=== PATIENT | male | born 1970 | race Caucasian/White ===

== ENCOUNTER 2016-11-12 16:01 | Inpatient (IN) | payer MEDICAID ==
--- NOTE | 2016-11-12 16:33 | C.PDOC ---
History Of Present Illness SUICIDAL, SP OD ATTEMPT YEST. PS "I WANT TO GET OFF THIS HABIT". HEROIN ABUSE ONLY, DENIES OTHER DRUG USE. NONE TAKEN TODAY EXAM PSYCH +SI NO ACUTE INTOX OR WITHDRAWAL, CALM COOPERATIVE REMAINDER NEG Time Seen by Provider: 11/12/16 16:30 Chief Complaint (Nursing): Psychiatric Evaluation History Per: Patient History/Exam Limitations: no limitations Onset/Duration Of Symptoms: Persistent Suicide/Self Injury Attempted (Context): Ingestion (OD on drugs) Associated Symptoms: Suicidal Thoughts Past Medical History Reviewed: Historical Data, Nursing Documentation, Vital Signs Vital Signs: Last Vital Signs Temp 97.9 F 11/12/16 16:10 Pulse 79 11/12/16 16:10 Resp 16 11/12/16 16:10 BP 110/72 11/12/16 16:10 Pulse Ox 97 11/12/16 16:42 - [facility] [employer] Procedures DETOXIFICATION SERVICES FOR SUBSTANCE ABUSE TREATMENT (06/10/15) Family History: States: No Known Family Hx, Unknown Family Hx - Social History Hx Alcohol Use: No Hx Substance Use: Yes (last use 2 wks ago) - Immunization History Hx Tetanus Toxoid Vaccination: No Hx Influenza Vaccination: No Review Of Systems Except As Marked, All Systems Reviewed And Found Negative. Constitutional: Negative for: Fever Cardiovascular: Negative for: Chest Pain Respiratory: Negative for: Shortness of Breath Gastrointestinal: Negative for: Nausea, Vomiting Psych: Positive for: Suicidal ideation Physical Exam - Physical Exam Appears: Non-toxic, No Acute Distress Skin: Warm, Dry, No Rash Head: Atraumatic, Normacephalic Extremity: Normal ROM, No Swelling Neurological/Psych: Oriented x3, Normal Speech, Other (+SI. No acute intoxication or withdrawal. Calm and cooperative. ) ED Course And Treatment - Laboratory Results Result Diagrams: 11/12/16 16:54 11/12/16 16:54 O2 Sat by Pulse Oximetry: 97 (RA) Pulse Ox Interpretation: Normal Progress - Re-Evaluation Re-evaluation Note: 11/12/16 18:23 MED CLEAR FOR CRISIS EVAL 11/12/16 18:23 CRISIS NOTIFIED - Data Reviewed Data Reviewed: Lab, Diagnostic imaging, Old records Medical Decision Making Medical Decision Making: PLAN: * Alcohol Serum * Drug Screen * CBC * CMP * Urinalysis Disposition - Disposition Disposition Time: 19:00 Condition: STABLE Forms: R-Squared (Kinyarwanda) - Clinical Impression Clinical Impression: Drug abuse, Suicidal ideation - Scribe Statement The provider has reviewed the documentation as recorded by the Scribe Prerna Cornell Provider Attestation: All medical record entries made by the Scribe were at my direction and personally dictated by me. I have reviewed the chart and agree that the record accurately reflects my personal performance of the history, physical exam, medical decision making, and the department course for this patient. I have also personally directed, reviewed, and agree with the discharge instructions and disposition. Physician Patient Turnover Patient Signed Over To: Adam Staley Handoff Comments: FU CRISIS DISPO
[2016-11-12 16:56] LABS: BASO % 0.6 % (0.0-2.0); EOS # 0.2 K/uL (0.0-0.7); EOS % 2.5 % (0.0-4.0); HEMATOCRIT 36.3 % (35.0-51.0); LYMPH # 2.7 K/uL (1.0-4.3); LYMPH % 37.7 % (20.0-40.0); MEAN CELL VOLUME 92.2 fL (80.0-94.0); MEAN CORPUSCULAR HEMOGLOBIN 31.3 pg (27.0-31.0); MEAN PLATELET VOLUME 8.8 fL (7.2-11.7); MONO # 0.6 K/uL (0.0-0.8); MONO % 7.6 % (0.0-10.0); RED CELL DISTRIBUTION WIDTH 13.5 % (11.5-14.5); WHITE BLOOD COUNT 7.2 K/uL (4.8-10.8)
[2016-11-12 16:59] LABS: RBC URINE 1 /hpf (0-3); URINE BILIRUBIN NEGATIVE (NEGATIVE); URINE BLOOD NEGATIVE (NEGATIVE); URINE COLOR Yellow (YELLOW); URINE GLUCOSE (UA) 3+ mg/dL (Normal); URINE KETONE NEGATIVE (NEGATIVE); URINE LEUKOCYTE ESTERASE NEG Leu/uL (Negative); URINE PROTEIN NEGATIVE (NEGATIVE); WBC URINE < 1 /hpf (0-5)
[2016-11-12 18:09] LABS: CHLORIDE 95 mmol/L (98-107); SODIUM 134 mmol/L (132-148)
[2016-11-12 18:10] LABS: POTASSIUM 3.6 mmol/L (3.6-5.2)
[2016-11-12 18:12] LABS: ALB/GLOB RATIO 0.8 (1.0-2.1); ALKALINE PHOSPHATASE 170 U/L (38-126); ALT/SGPT 62 U/L (21-72); AST/SGOT 63 U/L (17-59); BILIRUBIN,TOTAL 0.5 mg/dL (0.2-1.3); BLOOD UREA NITROGEN 9 mg/dL (9-20); CARBON DIOXIDE 32 mmol/L (22-30); GFR AFRICAN-AMERICAN > 60; GLUCOSE,RANDOM 384 mg/dL (75-110); TOTAL PROTEIN 7.8 g/dL (6.3-8.3)
[2016-11-12 18:13] LABS: ALCOHOL SERUM < 10 mg/dl (0-10)
--- NOTE | 2016-11-12 21:02 | PCM.BM ---
<Carly Knight - Last Filed: 11/12/16 21:00> Treatment Plan Problems - Problems identified on initial assessmt Depression Date Initiated: 11/12/16 Time Initiated: 21:01 Assessment reference: NA Status: Active Suicidal Ideation Date Initiated: 11/12/16 Time Initiated: 21:01 Assessment reference: NA Status: Active Treatment assets and liabiliti Patient Assests: cooperative, ADL independent, negotiates basic needs, cognitively intact Patient Liabilities: live alone (lives with mother), financial problems, substance abuse (Cocaine, Benzo), medical problems (DM) - Milieu Protocol Maintain good personal hygiene: daily Encourage regular showers, daily Remind patient to perform daily oral care, other Assist patient to perform ADL's (Self) Conduct patient checks and document Observation sheet: Q15 minutes (Safety) Maintain personal safety: every shift Educate patient to report safety concerns to staff, every shift Monitor environment for contraband/sharps Medication safety: Monitor for expected outcome, potential side effects: every shift, Assess barriers to learning: every shift, Assess readiness for medication education: every shift <Larry Londono - Last Filed: 11/15/16 17:08> - Diagnosis (1) Major depressive disorder, single episode, severe, with psychosis Status: Acute Interventions: Assess/adjust medications daily and/or as needed SEE patient on him individual basis 7x/week to assess status of hallucinations. Discuss risks, benefits, side effects and alternatives of medications. 11/15/16 17:05 (2) Opiate dependence Status: Acute Interventions: Assess 7x/week regarding severity of withdrawal Educated regarding risks, benefits, side effects and alternatives of medications Used motivational interview for abstinence Used CBT for relapse prevention Medication management for withdrawal symptoms Encouraged medication assisted treatment 11/15/16 17:07 (3) Moderate sedative, hypnotic, or anxiolytic use disorder Status: Acute Interventions: Assess 7x/week regarding severity of withdrawal Educated regarding risks, benefits, side effects and alternatives of medications Used motivational interview for abstinence Used CBT for relapse prevention Medication management for withdrawal symptoms Encouraged medication assisted treatment 11/15/16 17:07
[2016-11-13 07:19] VITALS: TEMP 98.1
--- NOTE | 2016-11-13 11:24 | PCM.PSYCH ---
Initial Psychiatric Evaluation - Initial Psychiatric Evaluation Type of Admission: Voluntary Legal Status: Capacity Chief Complaint (in patient's own words): "I was suicidal" History of Present Illness and Precipitating Events: The pt is seen and chart reviewed, case discussed. He is known from a previous detox admission. He is a 46 yo LM, single, unemployed ("[employer]"), no child, domiciled. He is here for depression and heroin detox. He claims he was hearing voices telling to jump off bridge, and that he had been "very depressed" for weeks now. He also thought about OD'ing but these are all in the context of his heavy xanax and heroin use. He previously had no psych history. He has been using 7-8 bags IV and his last use was yesterday. He started 4 years ago. Denies other drug or alcohol/cigarette use. He has been to detox 2-3 times but he has never been to rehab, NA or [facility]. He also admitted to using 5-6 Xanax "sticks" (2 mg tab) for a long time. Past psych hx: Depression. Not sure about meds. Mostly drug-induced. Family psych: Denies Medical hx: DM untreated. Current Medications: Active Medications Generic Name Dose Route Start Last Admin Trade Name Freq PRN Reason Stop Dose Admin Metformin HCl 500 mg 11/13/16 10:00 Glucophage PO BID MARILYN Pneumococcal Polyvalent Vaccine 0.5 ml 11/15/16 10:00 Pneumovax 23 Vaccine IM 11/15/16 10:01 .ONCE ONE Past Psychiatric History - Past Psychiatric History Previous Treatment History: None Pertinent Medical Hx (Current Medical&Sleep Prob, Allergies): Allergies Allergy/AdvReac Type Severity Reaction Status Date / Time No Known Allergies Allergy Verified 11/12/16 16:13 Insulin Aspar/Insulin N 70/30 [Novolog MIX 70/30-U/ML 3ML] 35 units SC BID 11/12 Review of Systems - Neurological Neurological: UNREMARKABLE - Psychiatric Psychiatric: Abnormal Sleep Pattern, Anhedonia, Depression, Difficulty Concentrating, Hallucinations. absent: Homicidal Ideation, Paranoia, Suicidal Ideation (no intention, plan and contracts for safety) Mental Status Examination - Personal Presentation Personal Presentation: Looks stated age - Affect Affect: Constricted - Motor Activity Motor Activity: Calm - Reliability in Providing Information Reliability in Providing Information: Good - Speech Speech: Organized - Mood Mood: Depressed, Anxious - Formal Thought Process Formal Thought Process: No Impairment - Cognitive Functions Orientation: Person, Place, Situation, Time Sensorium: Alert Attention/Concentration: Attentive, Easily distracted Estimate of Intelligence: Average Judgement: Intact, as evidence by: Insight regarding need for hospitalization Memory: Recent intact, as evidence by: Ability to recall events of the day, Remote intact, as evidenced by: Abilit to recall sig. life events - Risk Risk: Withdrawal, Diminished functioning - Strength & Assets Inventory Strength & Assets Inventory: Cooperative - Limitations Limitations: Other DSM 5 DX - DSM 5 DSM 5 Diagnosis: Major depression, single, severe with psychotic feat. r/o Substance-induced depression OPioid withdrawal Opioid use d/o -severe Sedative, hypnotic and anxiolytic use d/o - severe - Recommended/Plan of Treatment Treatment Recommendations and Plan of Treatment: Methadone detox for opioids Librium detox for sedatives Remeron for depression As needed medications Gabapentin for augmentation Attend groups and activities Supportive therapy and psychoeducation [facility] for abstinence CBT for relapse prevention Encourage MAT Refer to rehab or IOP Attend self-help groups as well Medical meds and as needed med consult for DM 34 min Projected ELOS: 5-6 days Prognosis: good w treatment - Smoking Cessation Smoking Cessation Initiated: No Reason for not providing: non smoker
[2016-11-13] MEDS ORDERED: Aluminum Hydroxide/Magnesium Hydroxide Susp (30 mL) PO PRN (13:11)
[2016-11-13] MEDS: (Novolog) Insulin Aspart, Recombinant 100 u/ml 10 ml vial SC SCH ×2 (16:05→21:32)
[2016-11-14 07:30] VITALS: RESP 20
[2016-11-14] MEDS: (Novolog) Insulin Aspart, Recombinant 100 u/ml 10 ml vial SC SCH ×4 (08:54→21:00)
[2016-11-14 09:30] VITALS: O2SAT 69
[2016-11-14 15:45] VITALS: BP 140/92; PULSE 62
--- NOTE | 2016-11-14 18:51 | PCM.PYCHPN ---
Psychiatric Progress Note - Psychiatric Progress Note Patient seen today, length of contact: 15 minutes Patient Chief Complaint: I'm feeling little better Problems Identified/Issues Discussed: Patient seen. Chart reviewed. Case discussed with staff. Issues related to illness and treatment were discussed with the patient. Reported compliant with treatment with no adverse affects. Tolerating treatment very well. Reported feeling better with mild withdrawal symptoms. At the time of evaluation, patient was awake alert oriented 3, had no delusions , no auditory or visual hallucinations, no suicidal ideations or homicidal ideations. Medical Problems: Diabetes mellitus Diagnostic Results: Reviewed DSM 5 Symptoms Update: Improving with treatment Medication Change: No Medical Record Reviewed: Yes Mental Status Examination - Cognitive Function Orientation: Person, Place, Situation, Time Memory: Intact Attention: WNL Concentration: WNL Association: WNL Fund of Knowledge: [facility] Decription of patient's judgement and insights: Fair - Mood Mood: Depressed - Affect Affect: Other (Appropriate) - Speech Speech: Appropriate - Formal Thought Process Formal Thought Process: No Impairment Psychotic Thoughts and Behaviors: None - Suicidal Ideation Suicidal Ideation: No - Homicidal Ideation Homicidal Ideation: No Goal/Treatment Plan - Goal/Treatment Plan Need for Continued Stay: Remain at risks for inpatient hospitalization, Discharge may exacerbated symptoms, Severe functional impairment Progress Toward Problem(s) and Goals/Treatment Plan: Patient education Supportive therapy Continue treatment as before. Estimated Date of D/C: 11/17/16 - Smoking Cessation Smoking Cessation Initiated: No
[2016-11-15] MEDS: (Novolog) Insulin Aspart, Recombinant 100 u/ml 10 ml vial SC SCH ×2 (08:05→13:09)
[2016-11-15] MEDS ORDERED: Influenza Vaccine 60 mcg/0.5 mL SYR (4YR UP) IM ONE (10:00)
[2016-11-15] MEDS ORDERED: Pneumococcal 23-Valent Vaccine IM ONE (10:00)
--- NOTE | 2016-11-15 16:30 | PCM.PYCHDC ---
Mental Status Examination - Mental Status Examination Orientation: Person, Place, Situation, Time Memory: Intact Mood: Neutral Affect: Flat Speech: Appropriate Attention: WNL Concentration: WNL Association: WNL Fund of Knowledge: WNL Formal Thought Process: No Impairment Description of patient's judgement and insight: Poor Psychotic Thoughts and Behaviors: None Suicidal Ideation: No Current Homicidal Ideation?: No Discharge Summary - Discharge Note Reason for Hospitalization: Depression Opiate withdrawal Anxiolytics withdrawal Laboratory Data: Abnormal Lab Results 11/14/16 11/14/16 11/15/16 16:31 20:55 07:40 POC Glucose (mg/dL) 275 H 274 H 262 H 11/15/16 11:44 POC Glucose (mg/dL) 322 H Consultations:: List each consultation separately and include: 1. Reason for request. 2. Findings. 3. Follow-up Summary of Hospital Course include:: 1. Description of specific treatment plan utilized for patients during their course of treatmen. 2. Summarize the time- course for resolution of acute symptoms and/or regressed behaviors. 3. Describe issues identified and worked on during hospitalization. 4. Describe medication utilized. 5. Describe medical problems identified and treated. 6. Reassessment of suicide risk Summary of Hospital Course: The pt is seen and chart reviewed, case discussed. He is known from a previous detox admission. He is a 46 yo LM, single, unemployed ("[facility] [employer] [facility] [employer] no child, domiciled. He is here for depression and heroin detox. He claims he was hearing voices telling to jump off bridge, and that he had been "very depressed" for weeks now. He also thought about OD'ing but these are all in the context of his heavy xanax and heroin use. He previously had no psych history. He has been using 7-8 bags IV and his last use was yesterday. He started 4 years ago. Denies other drug or alcohol/cigarette use. He has been to detox 2-3 times but he has never been to rehab, [facility] or [facility]. He also admitted to using 5-6 Xanax "sticks" (2 mg tab) for a long time. Past psych hx: Depression. Not sure about meds. Mostly drug-induced. Family psych: Denies During his stay in the hospital, patient was started on Librium, methadone, gabapentin and other when necessary medications. Patient was attending groups and other activities on the unit randomly. Today patient decided to leave his unit. Education provided to patient about completion of detox. Patient refused. Patient was educated that in case of any adverse event including decompensation , relapse, overdose or even , patient will be responsible for his actions. Patient understood and agreed with the above but still refused to stay and left the unit at his medical advice. At the time of evaluation and discharge, patient was awake alert oriented 3, calm, no delusions, no auditory or visual hallucinations, no suicidal ideations or homicidal ideations. - Final Diagnosis (DSM 5) Condition upon Discharge: STABLE Disposition: AGAINST MEDICAL ADVICE - Smoking Cessation Smoking Cessation Medication prescribed: No - Antipsychotic Medications Pt discharged on 2 or more routine antipsychotic medications: No
== END 2016-11-15 13:30 | disposition left against medical advice (07) | DRG 743 ==
LOC: C.ER 16:01 → C.5E 19:18
PROVIDERS: ADMIT Psychiatry & Neurology Psychiatry; ATTEND Psychiatry & Neurology Psychiatry
PROC: HZ2ZZZZ Detoxification Services for Substance Abuse Treatment (ICD-10-PCS; principal; 2016-11-13)
PROC: HZ52ZZZ Individual Psychotherapy for Substance Abuse Treatment, Cognitive-Behavioral (ICD-10-PCS; 2016-11-13)
PROC: HZ59ZZZ Individual Psychotherapy for Substance Abuse Treatment, Supportive (ICD-10-PCS; 2016-11-13)
PROC: HZ56ZZZ Individual Psychotherapy for Substance Abuse Treatment, Psychoeducation (ICD-10-PCS; 2016-11-13)
PROC: HZ42ZZZ Group Counseling for Substance Abuse Treatment, Cognitive-Behavioral (ICD-10-PCS; 2016-11-13)
PROC: HZ46ZZZ Group Counseling for Substance Abuse Treatment, Psychoeducation (ICD-10-PCS; 2016-11-13)
DX: F11.23 Opioid dependence with withdrawal (principal); R45.851 Suicidal ideations; F32.3 Major depressive disorder, single episode, severe with psychotic features; F41.9 Anxiety disorder, unspecified; F13.230 Sedative, hypnotic or anxiolytic dependence with withdrawal, uncomplicated; E11.9 Type 2 diabetes mellitus without complications